=== PATIENT | female | born 1980 | race Caucasian/White ===

== ENCOUNTER 2017-02-17 17:51 | Emergency (ER) | payer SELFPAY ==
[~2017-02-17] VITALS: Wt 76.0 kg
[2017-02-17] MEDS ORDERED: SOD CHLORIDE 0.9% 1,000 ML IV STA (18:15)
[2017-02-17] MEDS ORDERED: KETOROLAC 30 MG INJ IV STA (18:15)
[2017-02-17 18:33] LABS: BASOPHILS % 0.3 % (0.0-2.0); EOSINOPHILS # 0.1 10^3/ul (0.0-0.5); EOSINOPHILS % 1.4 % (0.0-7.0); HEMATOCRIT 40.2 % (37.0-47.0); HEMOGLOBIN 13.2 g/dl (12.0-16.0); LYMPHOCYTES # 2.4 10^3/ul (0.8-2.9); LYMPHOCYTES % 27.5 % (15.0-51.0); MEAN CORPUSCULAR HEMOGLOBIN 28.3 pg (29.0-33.0); MEAN CORPUSCULAR HGB CONC 32.8 g/dl (32.0-37.0); MEAN CORPUSCULAR VOLUME 86.3 fl (82.0-101.0); MEAN PLATELET VOLUME 11.3 fl (7.4-10.4); MONOCYTE # 0.6 10^3/ul (0.3-0.9); MONOCYTES % 6.9 % (0.0-11.0); NEUTROPHILS % 63.6 % (39.0-77.0); PLATELET COUNT 254 10^3/UL (140-415); RED BLOOD COUNT 4.66 10^6/ul (4.20-5.40); RED CELL DISTRIBUTION WIDTH 12.6 % (11.5-14.5); WHITE BLOOD COUNT 8.8 10^3/ul (4.8-10.8)
[2017-02-17 18:56] LABS: ADD UMIC YES; UR ASCORBIC ACID NEGATIVE (NEGATIVE); UR BILIRUBIN (Dip) NEGATIVE (NEGATIVE); UR BLOOD (Dip) 1+ mg/dL (NEGATIVE); UR CLARITY CLOUDY (CLEAR); UR COLOR YELLOW (YELLOW); UR GLUCOSE (Dip) NEGATIVE (NEGATIVE); UR KETONES (Dip) NEGATIVE (NEGATIVE); UR LEUKOCYTE ESTERASE (Dip) NEGATIVE Leu/ul (NEGATIVE); UR NITRITE (Dip) NEGATIVE (NEGATIVE); UR RBC 5 /HPF (0-5); UR SQUAMOUS EPITHELIAL CELL FEW /HPF (FEW); UR TOTAL PROTEIN (Dip) NEGATIVE (NEGATIVE); UR UROBILINOGEN (Dip) 1+ mg/dL (NEGATIVE)
[2017-02-17 18:58] LABS: ALBUMIN 4.3 g/dl (3.3-4.9); ALBUMIN/GLOBULIN RATIO 1.22; BILIRUBIN,INDIRECT 0.2 mg/dl (0-1.1); BILIRUBIN,TOTAL 0.2 mg/dl (0.2-1.3); CALCIUM 9.2 mg/dl (8.4-10.2); CREATININE 0.79 mg/dl (0.44-1.00); POTASSIUM 4.4 mmol/L (3.5-5.1); TOTAL PROTEIN 7.8 g/dl (6.1-8.1)
--- NOTE | 2017-02-17 19:21 | RADRPT ---
PROCEDURE: Right upper quadrant ultrasound CLINICAL INDICATION: Abdominal pain TECHNIQUE: Multiple real-time images were acquired of the patient's abdomen and right retroperiton eum utilizing a high resolution transducer. COMPARISON: None FINDINGS: The liver is slightly increased in echogenicity and measures 16.1 cm. No focal hepatic masses are s een. The gallbladder is physiologically distended. There are multiple small calcified gallstones. There is no gallbladder wall thickening or pericholecystic fluid. The intra and extrahepatic bile ducts are normal in caliber. The common bile duct measures 4.7 mm. Midline images demonstrate the pancreas to be normal in echogenicity without obvious inflammatory ch yolanda. Survey views of the right kidney demonstrate no evidence of hydronephrosis or renal calculi. The ri ght kidney measures 11.2 cm. IMPRESSION: 1. Cholelithiasis without evidence of acute cholecystitis. 2. No biliary duct dilatation. 3. Mild fatty liver RPTAT: HH .Carlos Bach MD, Date Time Electronically viewed and signed by .Carlos Bach MD, on 02/17/2017 19:20 .W/
[2017-02-17] MEDS ORDERED: HYDR-906 PO (19:28)
[2017-02-17] MEDS ORDERED: morphine 4 MG/ML VIAL IV STA (19:35)
[2017-02-17] MEDS ORDERED: IOHEXOL 300MG/ML 150 ML BTL ONE (20:44)
[2017-02-17] MEDS ORDERED: SOD CHLORIDE 0.9% 100 ML ONE (20:44)
--- NOTE | 2017-02-17 21:20 | RADRPT ---
PROCEDURE: CT abdomen and pelvis with contrast. CLINICAL INDICATION: Abdominal pain. TECHNIQUE: CT scan of the abdomen and pelvis with contrast was performed after the uneventful intrav enous administration of 100 cc of Omnipaque-300. Coronal and sagittal reformatted images were obtain ed from the axial source images. The total exam CTDI equals 10.94 mGy and the total exam DLP equals 581.05 mGy-cm. One or more of the following dose reduction techniques were used: - Automated exposure control. - Adjustment of the mA and/or kV according to patient size. - Use of iterative reconstruction technique. COMPARISON: Abdominal ultrasound dated 02/17/2017. FINDINGS: Visualized lower thorax: The visualized lung bases are clear. The visualized heart is unremarkable. Hepatobiliary system and spleen: The liver is normal in size and density with no focal hepatic lesi on identified. There is no intra or extrahepatic biliary ductal dilatation. There are stones within the gallbladder. The spleen is unremarkable. The pancreas is unremarkable. Adrenal glands and genitourinary system: The adrenal glands are unremarkable. There are no renal ma sses or hydronephrosis. The urinary bladder is unremarkable. The uterus and adnexa are unremarkable . Gastrointestinal system: The stomach and small bowel are unremarkable. There is no bowel wall thick ening or evidence of obstruction. The appendix is in the right lower quadrant and is unremarkable. Peritoneum, vascular system, lymphatics: There is no free intraperitoneal air. There is a small vo lume of free fluid within the pelvis. There is no mesenteric or retroperitoneal adenopathy. The aort a is nonaneurysmal. Musculoskeletal system: There is mild multilevel degenerative enthesopathy. There are no concerning osseous lesions. IMPRESSION: 1. Cholelithiasis without additional findings to suggest acute cholecystitis. 2. Small volume of free fluid within the pelvis, likely physiologic. RPTAT: [facility] .Damir Londono MD, MD Date Time Electronically viewed and signed by .Damir Londono MD, MD on 02/17/2017 21:20 .P/
[2017-02-17 22:17] VITALS: BP 119/78; PULSE 58; RESP 18; TEMP 97.7
--- NOTE | 2017-02-17 22:35 | ERD ---
ER Documentation Chief Complaint Date/Time DATE: 02/17/17 TIME: 22:30 Chief Complaint ap x 1 mos intermittent HPI 36-year-old female coming in complaining of epigastric pain 1 month. Patient states the pain is constant. She has been told she has gallstones in the past. She has had a few episodes of vomiting. No pain or shortness of breath. Normal bowel movements and urination. Has not taken pain medicine for the symptoms. Medical problems: Denies NKDA Surgical history: LNMP: February 01 ROS All systems reviewed and are negative except as per history of present illness. Medications Home Meds Active Scripts Hydrocodone/Acetaminophen ([place] 5-325 Tablet) 1 Each Tablet, 1 TAB PO Q6H Y for PAIN, #7 TAB Prov:MAKEDA ECHAVARRIA PA-C 02/17/17 PMhx/Soc Medical and Surgical Hx: pt denies Medical Hx, pt denies Surgical Hx Hx Alcohol Use: No Hx Substance Use: No Hx Tobacco Use: No Smoking Status: Never smoker Physical Exam Vitals Vital Signs Date Time Temp Pulse Resp B/P Pulse Ox O2 Delivery O2 Flow Rate FiO2 02/17/17 22:17 97.7 58 18 119/78 100 Room Air 02/17/17 17:52 98.1 74 18 150/78 99 Physical Exam GENERAL: The patient is well-appearing, well-nourished, in no acute distress CHEST: Clear to auscultation bilaterally. There are no rales, wheezes or rhonchi. HEART: Regular rate and rhythm. No murmurs, clicks, rubs or gallops. No S3 or S4. ABDOMEN:Soft, nondistended. Good bowel sounds. No rebound or guarding. No gross peritonitis. No gross organomegaly or masses. Positive Vera sign. Tender to palpation in the right epigastric region BACK: No midline or flank tenderness. Result Diagram: 02/17/17182402/17/171824 Results 24 hrs Laboratory Tests Test 02/17/17 18:25 02/17/17 18:30 White Blood Count 8.810^3/ul Red Blood Count 4.6610^6/ul Hemoglobin 13.2g/dl Hematocrit 40.2% Mean Corpuscular Volume 86.3fl Mean Corpuscular Hemoglobin 28.3pg Mean Corpuscular Hemoglobin Concent 32.8g/dl Red Cell Distribution Width 12.6% Platelet Count 36155^3/UL Mean Platelet Volume 11.3fl Neutrophils % 63.6% Lymphocytes % 27.5% Monocytes % 6.9% Eosinophils % 1.4% Basophils % 0.3% Nucleated Red Blood Cells % 0.0/100WBC Neutrophils # (Manual) 610^3/ul Lymphocytes # 2.410^3/ul Monocytes # 0.610^3/ul Eosinophils # 0.110^3/ul Basophils # 0.010^3/ul Nucleated Red Blood Cells # 0.010^3/ul Sodium Level 143mmol/L Potassium Level 4.4mmol/L Chloride Level 100mmol/L Carbon Dioxide Level 29mmol/L Anion Gap 18 Blood Urea Nitrogen 11mg/dl Creatinine 0.79mg/dl Glucose Level 100mg/dl Calcium Level 9.2mg/dl Total Bilirubin 0.2mg/dl Direct Bilirubin 0.00mg/dl Indirect Bilirubin 0.2mg/dl Aspartate Amino Transf (AST/SGOT) 23IU/L Alanine Aminotransferase (ALT/SGPT) 36IU/L Alkaline Phosphatase 77IU/L Total Protein 7.8g/dl Albumin 4.3g/dl Globulin 3.50g/dl Albumin/Globulin Ratio 1.22 Lipase 88U/L Serum HCG, Qualitative NEGATIVE Urine Color YELLOW Urine Clarity CLOUDY Urine pH 7.0 Urine Specific Rogers 1.020 Urine Ketones NEGATIVEmg/dL Urine Nitrite NEGATIVEmg/dL Urine Bilirubin NEGATIVEmg/dL Urine Urobilinogen 1+mg/dL Urine Leukocyte Esterase NEGATIVELeu/ul Urine Microscopic RBC 5/HPF Urine Microscopic WBC 13/HPF Urine Squamous Epithelial Cells FEW/HPF Urine Hemoglobin 1+mg/dL Urine Glucose NEGATIVEmg/dL Urine Total Protein NEGATIVEmg/dl Current Medications Medications (Trade) Dose Ordered Sig/Jerome Route PRN Reason Start Time Stop Time Status Last Admin Dose Admin Sodium Chloride (NS) 1,000 ml @ 1,000 mls/hr Q1H STAT IV 02/17/17 18:15 02/17/17 19:14 DC 02/17/17 18:52 Ketorolac Tromethamine (Toradol) 30 mg ONCE STAT IV 02/17/17 18:15 02/17/17 18:17 DC 02/17/17 18:53 Morphine Sulfate (morphine) 4 mg ONCE STAT IV 02/17/17 19:35 02/17/17 19:37 DC 02/17/17 19:52 IV Flush 10 ml 10 ml STK-MED ONCE .ROUTE 02/17/17 20:44 02/17/17 20:45 DC 02/17/17 20:57 Sodium Chloride (NS) 100 ml @ ud STK-MED ONCE .ROUTE 02/17/17 20:44 02/17/17 20:45 DC 02/17/17 20:57 Iohexol (Omnipaque 300mg/ ml) 150 ml STK-MED ONCE .ROUTE 02/17/17 20:44 02/17/17 20:45 DC 02/17/17 20:57 Procedures/MDM DIAGNOSTIC IMAGING REPORT Patient: JOSÉ MIGUEL KINGSLEY : 1980 Age: 36 Sex: F MR #: [id number] DOS: 02/17/17 0000 Ordering MD: VENECIA ECHAVARRIA PA-C Location: [facility] Room/Bed: PROCEDURE: Right upper quadrant ultrasound CLINICAL INDICATION: Abdominal pain TECHNIQUE: Multiple real-time images were acquired of the patient's abdomen and right retroperitoneum utilizing a high resolution transducer. COMPARISON: None FINDINGS: The liver is slightly increased in echogenicity and measures 16.1 cm. No focal hepatic masses are seen. The gallbladder is physiologically distended. There are multiple small calcified gallstones. There is no gallbladder wall thickening or pericholecystic fluid. The intra and extrahepatic bile ducts are normal in caliber. The common bile duct measures 4.7 mm. Midline images demonstrate the pancreas to be normal in echogenicity without obvious inflammatory change. Survey views of the right kidney demonstrate no evidence of hydronephrosis or renal calculi. The right kidney measures 11.2 cm. IMPRESSION: 1. Cholelithiasis without evidence of acute cholecystitis. 2. No biliary duct dilatation. 3. Mild fatty liver DIAGNOSTIC IMAGING REPORT Patient: JOSÉ MIGUEL KINGSLEY : 1980 Age: 36 Sex: F MR #: [id number] DOS: 02/17/17 1935 Ordering MD: VENECIA ECHAVARRIA PA-C Location: [facility] Room/Bed: PROCEDURE: CT abdomen and pelvis with contrast. CLINICAL INDICATION: Abdominal pain. TECHNIQUE: CT scan of the abdomen and pelvis with contrast was performed after the uneventful intravenous administration of 100 cc of Omnipaque-300. Coronal and sagittal reformatted images were obtained from the axial source images. The total exam CTDI equals 10.94 mGy and the total exam DLP equals 581.05 mGy-cm. One or more of the following dose reduction techniques were used: - Automated exposure control. - Adjustment of the mA and/or kV according to patient size. - Use of iterative reconstruction technique. COMPARISON: Abdominal ultrasound dated 02/17/2017. FINDINGS: Visualized lower thorax: The visualized lung bases are clear. The visualized heart is unremarkable. Hepatobiliary system and spleen: The liver is normal in size and density with no focal hepatic lesion identified. There is no intra or extrahepatic biliary ductal dilatation. There are stones within the gallbladder. The spleen is unremarkable. The pancreas is unremarkable. Adrenal glands and genitourinary system: The adrenal glands are unremarkable. There are no renal masses or hydronephrosis. The urinary bladder is unremarkable. The uterus and adnexa are unremarkable. Gastrointestinal system: The stomach and small bowel are unremarkable. There is no bowel wall thickening or evidence of obstruction. The appendix is in the right lower quadrant and is unremarkable. Peritoneum, vascular system, lymphatics: There is no free intraperitoneal air. There is a small volume of free fluid within the pelvis. There is no mesenteric or retroperitoneal adenopathy. The aorta is nonaneurysmal. Musculoskeletal system: There is mild multilevel degenerative enthesopathy. There are no concerning osseous lesions. IMPRESSION: 1. Cholelithiasis without additional findings to suggest acute cholecystitis. 2. Small volume of free fluid within the pelvis, likely physiologic. ER Course: 1 L saline given. IV Toradol given. IV morphine with Zofran given. Pain well controlled. MDM: 36-year-old female coming with epigastric pain. I have low suspicion for cholecystitis, choledocholithiasis, or cholangitis. Patient ultrasound does not show signs of infection. I have low suspicion for pancreatitis patient's lipase is within normal limits. Patient's CT scan is within normal limits I have low suspicion for other acute abdominal emergency at this time. Patient's pain is likely secondary to gallstones. Patient is recommended to follow-up with PMD to schedule a surgical referral. Patient is to comply plan. I will discharge her pain medication. All questions answered at the time of discharge. Departure Diagnosis: Primary Impression: Gallstones Condition: Stable Patient Instructions: Gallstones Referrals: [facility] YOU HAVE RECEIVED A MEDICAL SCREENING EXAM AND THE RESULTS INDICATE THAT YOU DO NOT HAVE A CONDITION THAT REQUIRES URGENT TREATMENT IN THE EMERGENCY DEPARTMENT. FURTHER EVALUATION AND TREATMENT OF YOUR CONDITION CAN WAIT UNTIL YOU ARE SEEN IN YOUR DOCTORS OFFICE WITHIN THE NEXT 1-2 DAYS. IT IS YOUR RESPONSIBILITY TO MAKE AN APPOINTMENT FOR FOLOW-UP CARE. IF YOU HAVE A PRIMARY DOCTOR --you should call your primary doctor and schedule an appointment IF YOU DO NOT HAVE A PRIMARY DOCTOR YOU CAN CALL OUR PHYSICIAN REFERRAL HOTLINE AT IF YOU CAN NOT AFFORD TO SEE A PHYSICIAN YOU CAN CHOSE FROM THE FOLLOWING [facility] CL[facility] [address] [facility] [address] [facility] [facility] [address] [facility] [address] [facility] [address] [facility]. [facility] [address] Additional Instructions: FOLLOW UP WITH YOUR PRIMARY CARE PHYSICIAN TOMORROW.Return to this facility if you are not improving as expected. MAKEDA ECHAVARRIA PA-C Feb 17, 2017 22:35
== END 2017-02-17 22:20 | disposition home or self-care (01) ==
LOC: FTE 17:51
DX: K80.20 Calculus of gallbladder without cholecystitis without obstruction (principal)
CPT/HCPCS: 36415; 74177; 76705; 80053; 81001; 83690; 84703; 85025; 96374; 96375; 99285; J1885; J2270; J7030; Q9967